=== PATIENT | female | born 1955 | race Caucasian/White ===

== ENCOUNTER 2017-09-10 08:56 | Emergency (ER) | payer SELFPAY ==
[~2017-09-10] VITALS: Ht 162.6 cm; Wt 59.9 kg
[2017-09-10] MEDS ORDERED: HYDROcodone/APAP 5/325 TABLET PO ONE (09:30)
[2017-09-10] MEDS ORDERED: HYDROcodone/APAP 5/325 TABLET ONE (10:01)
[2017-09-10] MEDS ORDERED: ONDANSETRON ODT 4 MG ONE (11:13)
[2017-09-10 11:19] VITALS: BP 117/70
[2017-09-10] MEDS ORDERED: ONDANSETRON ODT 4 MG PO ONE (11:30)
== END 2017-09-10 12:00 | disposition home or self-care (01) ==
LOC: ED 11:54
DX: M51.36 Other intervertebral disc degeneration, lumbar region (principal); M51.26 Other intervertebral disc displacement, lumbar region; M54.16 Radiculopathy, lumbar region; F17.200 Nicotine dependence, unspecified, uncomplicated; Z88.0 Allergy status to penicillin; Z88.2 Allergy status to sulfonamides; Z88.6 Allergy status to analgesic agent; Z88.8 Allergy status to other drugs, medicaments and biological substances
CPT/HCPCS: 99284; J7512; Q0162